=== PATIENT | male | born 1965 | race African-American/Black ===

== ENCOUNTER 2017-06-11 15:46 | Emergency (ER) | payer OTHER ==
[~2017-06-11] VITALS: Ht 185.4 cm; Wt 103.4 kg
[~2017-06-11 15:46] MED LIST: ALBUTEROL0.09 MG/A1 INH; AMLODIPINE10 MG PO; ATORVASTATIN CA10 MG PO; LEVAQUIN500 MG PO; LOSARTAN POTAS100 MG PO; PREDNISONE50 MG PO; ZOLPIDEM TARTRAT5 MG PO
--- NOTE | 2017-06-11 17:09 | ED GENERAL ADULT ---
History of Present Illness General Chief Complaint: General Adult Stated Complaint: BLOOD IN STOOL Source: patient Exam Limitations: no limitations Vital Signs & Intake/Output Vital Signs & Intake/Output Vital Signs Date Time Temp Pulse Resp B/P B/P Pulse O2 O2 Flow FiO2 Mean Ox Delivery Rate 06/11 1946 99.0 73 16 152/98 99 Room Air 06/11 1934 Room Air 06/11 1843 99.1 62 16 151/102 99 Room Air 06/11 1550 97.7 80 16 177/100 95 Room Air Allergies Coded Allergies: NO KNOWN ALLERGIES (07/27/11) Reconcile Medications Albuterol Sulfate (Albuterol Sulfate Hfa) 90 MCG HFA.AER.AD 2 PUFF INH Q4-6 PRN PRN SHORTNESS OF BREATH 90 MCG PER PUFF Amlodipine Besylate (Amlodipine) 10 MG TABLET 1 TAB PO DAILY HEART HEALTH ( Reported) Atorvastatin Calcium (Lipitor) 10 MG TABLET 1 TAB PO DAILY CHOLESTEROL ( Reported) Levofloxacin (Levaquin) 500 MG TABLET 1 TAB PO QDAY BRONCHITIS Losartan Potassium 100 MG TABLET 1 TAB PO DAILY HEART HEALTH (Reported) Prednisone 50 MG TABLET 1 TAB PO QDAY BRONCHITIS Zolpidem Tartrate 5 MG TAB 1 TAB PO QHS PRN SLEEP (Reported) Triage Note: PT STATES HE IS HAVING BLOOD IN HIS STOOL THAT STARTED YESTERDAY. PT CALLED PCP AND WAS TOLD TO COME TO ED. PT STATES ONLY BLOOD WHEN HE MOVES HIS BOWELS. PT REPORTS BRIGHT RED BLOOD. Triage Nurses Notes Reviewed? yes Onset: Gradual Duration: day(s): (2) Timing: remote history Injury Environment: home Severity: moderate No Modifying Factors: none HPI: Patient is a 52-year-old male with chief complaint of blood in soliciting going on for the past 24 hours. Patient reports that this started with moving his bowels yesterday afternoon. Denies straining. He noticed blood in the stool and in the toilet bowl. Remote history of similar symptoms but cannot remember what he was diagnosed with. Patient denies any nausea or vomiting. Chills chest pain or shortness of breath. Patient does admit to low abdominal discomfort, crampy in nature. No known history of hemorrhoids. Does not taken anything to help with symptoms. He called his primary care physician who was out for the day so they advised him to come to the emergency department for evaluation. Past History Travel History Traveled to [place] past 21 day No Medical History Any Pertinent Medical History? see below for history Cardiovascular: hypertension, hyperlipidemia Psychiatric: insomnia Surgical History Surgical History: non-contributory Psychosocial History Who do you live with Other (see notes) Services at Home None What is your primary language Macedonian Tobacco Use: Never used ETOH Use: denies use Illicit Drug Use: denies illicit drug use Family History Hx Contributory? No Review of Systems Review of Systems Constitutional: Reports: no symptoms. Comments Review of systems: See HPI, All other systems negative. Constitutional, no chills fever or weight loss HEENT: No visual changes no sore throat no congestion Cardiovascular: No chest pain ,palpitation Skin, no jaundice no rashes Respiratory: No dyspnea cough sputum or hemoptysis GI: No nausea no vomiting : No dysuria No hematuria Muscle skeletal: no back pain, no neck pain, Neurologic: No numbness no confusion, no headache Psych: No stress anxiety or depression,. Heme/endocrine: No bruising no bleeding no polyuria or polydipsia Immunology: No splenectomy or history of AIDS Physical Exam Physical Exam General Appearance: well developed/nourished, no apparent distress, alert, awake , comfortable Comments: Well-developed well-nourished person in no acute distress HEENT: Normal atraumatic, normocephalic Neck: Normal inspection Cardiovascular: Regular rate and rhythms no murmurs rubs or gallops, normal JVP Respiratory: Chest nontender. No respiratory distress.breath sounds clear to auscultation bilaterally Abdomen: Soft, mild tenderness to palpation in the lower quadrants bilaterally without rebound or guarding. Nondistended, no appreciable organomegaly. Normal bowel sounds. No ascites RECTAL: No visualized external hemorrhage, no palpated internal hemorrhoids. Nontender. Little stool in the rectal vault, mucous is guaiac positive. Extremity: No edema Neuro: Alert oriented x3 Skin: No appreciable rash on exposed skin, skin is warm and dry. Psych: Mood and affect is normal, memory and judgment is normal. Core Measures ACS in differential dx? No CVA/TIA Diagnosis: No Sepsis Present: No Sepsis Focused Exam Completed? No Progress Differential Diagnoses I considered the following diagnoses in my evaluation of the patient: Internal hemorrhoid, anemia, diverticulitis, diverticulosis, rectal tear Plan of Care: Orders Procedure Date/time Status COMPREHENSIVE METABOLIC PANEL 01/09 1701 Complete CBC WITHOUT DIFFERENTIAL 06/11 1700 Complete Laboratory Tests 06/11/17 1717: Anion Gap 13, Estimated GFR > 60, BUN/Creatinine Ratio 17.5, Glucose 97, Calcium 9.3, Total Bilirubin 0.9, AST 33, ALT 52, Alkaline Phosphatase 72, Total Protein 7.9, Albumin 4.5, Globulin 3.4, Albumin/Globulin Ratio 1.3, CBC w Diff NO MAN DIFF REQ, RBC 5.23, MCV 89.2, MCH 29.2, RDW 14.6 H, MPV 7.7, Gran % 40.5 L, Lymphocytes % 42.8, Monocytes % 9.2, Eosinophils % 7.0 H, Basophils % 0.5, Absolute Granulocytes 2.1, Absolute Lymphocytes 2.2, Absolute Monocytes 0.5, Absolute Eosinophils 0.4, Absolute Basophils 0, PUBS MCHC 32.7 L Diagnostic Imaging: Viewed by Me: CT Scan. Discussed w/RAD: CT Scan. Radiology Impression: PATIENT: RODNEY SALTER PRESENT AGE: 52 PATIENT ACCOUNT NO: [id number] : 63 LOCATION: [facility] ORDERING PHYSICIAN: Bertha SIERRA SERVICE DATE: 06/11/17 EXAM TYPE: CAT - CT ABD & PELVIS W IV CONTRAST EXAMINATION: CT ABDOMEN AND PELVIS WITH CONTRAST CLINICAL INFORMATION: Rule out diverticulitis. Abdominal pain. Blood in stool. COMPARISON: 02/10/2015 TECHNIQUE: Multidetector volumetric imaging was performed of the abdomen and pelvis following IV administration of 95 mL of Optiray 320 intravenous contrast. Sagittal and coronal reformatted images were obtained on the technologist's workstation. DLP: 541 mGy-cm FINDINGS: LUNG BASES: The visualized lung bases are unremarkable. LIVER, GALLBLADDER, AND BILIARY TREE: The liver is normal in size, shape, and attenuation. No focal hepatic lesion or biliary ductal dilatation is present. The gallbladder is unremarkable with no evidence of radiopaque gallstones, gallbladder wall thickening, or obvious pericholecystic inflammatory changes. PANCREAS: Unremarkable. SPLEEN: Unremarkable. ADRENAL GLANDS: Unremarkable. KIDNEYS AND URETERS: The kidneys are normal in size, shape, and attenuation. No hydronephrosis, hydroureter, or calculi seen. No perinephric stranding. BLADDER: Unremarkable. GASTROINTESTINAL TRACT: Stomach and small bowel are nondilated. Normal appendix. Mild diffuse colonic diverticulosis. The sigmoid colon is collapsed. There is wall thickening most likely attributable to underdistention. A subtle colitis could be obscured however. There is no pericolonic fluid or inflammatory change. ABDOMINAL WALL: Small fat-containing umbilical hernia. LYMPH NODES: Normal. VASCULAR: Normal caliber abdominal aorta. PELVIC VISCERA: The prostate and seminal vesicles are unremarkable. OSSEOUS STRUCTURES: No acute osseous abnormality. IMPRESSION: No CT findings to explain the patient's abdominal pain. The sigmoid colon is collapsed with wall thickening most likely due to underdistention. A subtle colitis is possible. No findings to suggest acute diverticulitis. Normal appendix. DICTATED BY: Ilir Tesfaye MD DATE/TIME DICTATED:06/11/171850 DIRECTOR OF STUDENT LIFE:AZUL DATE/TIME TRANSCRIBED:06/11/171850 CONFIDENTIAL, DO NOT COPY WITHOUT APPROPRIATE AUTHORIZATION. <Electronically signed in Other Vendor System> SIGNED BY: Ilir Tesfaye MD 06/11/171915 Initial ED EKG: none Departure Departure Time of Disposition: 1926 Disposition: HOME OR SELF CARE Condition: Stable Clinical Impression Primary Impression: Rectal bleeding Referrals: Jaime Sheikh MD (PCP/Family) Carroll Garcia MD Additional Instructions: Follow-up with Dr. Garcia, gastroenterologists, call tomorrow to make an appointment for the next 5-7 days. Return for any worsening symptoms or concerns. Make sure you are staying well-hydrated increase fluids. Departure Forms: Customer Survey General Discharge Information Critical Care Note Critical Care Note Critical Care Time: non-applicable
[2017-06-11 17:40] LABS: ABSOLUTE BASOPHIL COUNT 0 /CUMM (0.0-0.2); ABSOLUTE EOSINOPHIL COUNT 0.4 /CUMM (0.0-0.7); ABSOLUTE GRANULOCYTE CT 2.1 /CUMM (1.4-6.5); ABSOLUTE LYMPH COUNT 2.2 /CUMM (1.2-3.4); ABSOLUTE MONOCYTE COUNT 0.5 /CUMM (0.10-0.60); BASOPHIL % 0.5 % (0.0-2.0); GRANULOCYTE % 40.5 % (42.2-75.2); HEMATOCRIT 46.7 % (42-52); MEAN CORPUSCULAR HGB 29.2 PG (27.0-31.0); MEAN CORPUSCULAR HGB CONC 32.7 G/DL (33.0-37.0); MEAN CORPUSCULAR VOLUME 89.2 FL (80.0-94.0); MEAN PLATELET VOLUME 7.7 FL (7.4-10.4); PLATELET COUNT 323 /CUMM (130-400); RBC DISTRIBUTION WIDTH 14.6 % (11.5-14.5); RED BLOOD CELL CT 5.23 /CUMM (4.70-6.10); WHITE BLOOD CELL COUNT 5.1 /CUMM (4.8-10.8)
--- NOTE | 2017-06-11 19:16 | CT SCAN REPORT ---
EXAMINATION: CT ABDOMEN AND PELVIS WITH CONTRAST CLINICAL INFORMATION: Rule out diverticulitis. Abdominal pain. Blood in stool. COMPARISON: 02/10/2015 TECHNIQUE: Multidetector volumetric imaging was performed of the abdomen and pelvis following IV administration of 95 mL of Optiray 320 intravenous contrast. Sagittal and coronal reformatted images were obtained on the technologist's workstation. DLP: 541 mGy-cm FINDINGS: LUNG BASES: The visualized lung bases are unremarkable. LIVER, GALLBLADDER, AND BILIARY TREE: The liver is normal in size, shape, and attenuation. No focal hepatic lesion or biliary ductal dilatation is present. The gallbladder is unremarkable with no evidence of radiopaque gallstones, gallbladder wall thickening, or obvious pericholecystic inflammatory changes. PANCREAS: Unremarkable. SPLEEN: Unremarkable. ADRENAL GLANDS: Unremarkable. KIDNEYS AND URETERS: The kidneys are normal in size, shape, and attenuation. No hydronephrosis, hydroureter, or calculi seen. No perinephric stranding. BLADDER: Unremarkable. GASTROINTESTINAL TRACT: Stomach and small bowel are nondilated. Normal appendix. Mild diffuse colonic diverticulosis. The sigmoid colon is collapsed. There is wall thickening most likely attributable to underdistention. A subtle colitis could be obscured however. There is no pericolonic fluid or inflammatory change. ABDOMINAL WALL: Small fat-containing umbilical hernia. LYMPH NODES: Normal. VASCULAR: Normal caliber abdominal aorta. PELVIC VISCERA: The prostate and seminal vesicles are unremarkable. OSSEOUS STRUCTURES: No acute osseous abnormality. IMPRESSION: No CT findings to explain the patient's abdominal pain. The sigmoid colon is collapsed with wall thickening most likely due to underdistention. A subtle colitis is possible. No findings to suggest acute diverticulitis. Normal appendix.
[2017-06-11 19:47] VITALS: BP 152/98
== END 2017-06-11 19:57 ==
LOC: ERH 15:46
PROVIDERS: Physician Assistant
DX: K62.5 Hemorrhage of anus and rectum (principal)
CPT/HCPCS: 74177